=== PATIENT | male | born 1985 | race Caucasian/White ===

== ENCOUNTER 2020-02-25 10:15 | Outpatient (REF) | payer OTHER, SELFPAY ==
--- NOTE | 2020-02-25 10:24 | XR_ITS ---
EXAMINATION: XR FACIAL BONES CLINICAL INFORMATION: Injury to face. COMPARISON: None TECHNIQUE: 3 views of the facial bones were obtained. FINDINGS: There is normal aeration of bilateral paranasal sinuses and mastoid air cells. No mucoperiosteal thickening or air-fluid levels seen. There is no maxillofacial, nasal or orbital fractures seen. The TM joints appear normal. The soft tissues are normal. XR/XR facial bones <3V IMPRESSION: Unremarkable facial bone exam.
== END 2020-02-25 10:16 | disposition home or self-care (01) ==
LOC: HO.HMGCX 10:15
PROVIDERS: PCP Nurse Practitioner Family; Visit Provider Nurse Practitioner Family
DX: S09.93XA Unspecified injury of face, initial encounter (principal)
CPT/HCPCS: 70140

== ENCOUNTER 2022-08-24 13:25 | Outpatient (AMB) | payer OTHER, SELFPAY ==
[2022-08-24 13:35] VITALS: BP 150/108; PULSE 104; O2SAT 98; BMI 29.5
--- NOTE | 2022-08-24 13:35 | A.OFFPC_ITS ---
Vital Signs 08/24/22 13:35 08/24/22 14:31 Height 5 ft 11 in Weight 211 lb 8 oz BMI 29.5 BP 150/108 H 152/108 H Blood Pressure Location Lt brachial Lt brachial Position Sitting Sitting Pulse 104 H Pulse Source Pulse Oximeter Pulse Oximetry (%) 98 Oxygen Delivery Method Room Air Intake Visit Reasons: Physical Exam Allergies No Known Allergies Allergy (Verified 08/24/22 17:09) Medication List - Last Reconciled 08/24/22 by TREVOR York No Known Home Meds Tobacco use date assessed: 08/24/22 Dental Screening Dental Screen Date: 08/24/22 Did you have a dental visit in the last 12 months?: Yes Did you have a dental problem in the last 6 months where you did not have access to dental care?: No Was dental information given to patient?: Patient has dentist HPI Physical Exam HPI Details Pt is here for a PE. Will order labs. HTN: pt reported being in the 120s/80s at home. Will have pt continue to monitor BP at home. Denies chest pain, shortness of breath, headache, dizziness, and blurred vision. [facility] Social History Housing: House Alcohol intake: current Alcohol intake frequency: holidays/special occasions only Patient Tobacco Use Status: Never used Tobacco e-Cigarette/Vaping Use: Never Used Second Hand Smoke Exposure: No service: No Current occupational status: employed Current occupation: self employed retail Current occupational exposures/hazards: No Cognitive needs: No Hearing needs: No Vision needs: No Review of Systems Const Denies chills and Denies fever(s) Eyes Denies blurry vision ENT Denies vertigo, Denies dizziness and Denies sore throat Card Denies chest pain at rest, Denies chest pain with activity, Denies diaphoresis, Denies dyspnea and Denies dyspnea on exertion Resp Denies cough, Denies dyspnea, Denies dyspnea on exertion and Denies wheezing GI Denies abdominal pain, Denies melena, Denies hematochezia, Denies constipation, Denies diarrhea and Denies loose stools Denies hematuria Musc Denies numbness and Denies tingling Skin/Breast Denies lesions Neuro Denies vertigo, Denies dizziness, Denies numbness and Denies tingling Psych Denies anxiety, Denies depression, Denies homicidal ideation, Denies suicidal ideation and Denies other (substance abuse) Aller/Immun Denies wheezing Physical exam (Primary Care) Vital Signs: Last Vital Signs Pulse 104 H 08/24/22 13:35 BP 152/108 H 08/24/22 14:31 Pulse Ox 98 08/24/22 13:35 Oxygen Delivery Method Room Air 08/24/22 13:35 BMI result Body Mass Index 29.5 Tobacco/Smoking Status: Tobacco use Status Tobacco use date assessed 08/24/22 08/24/22 13:40 Patient Tobacco Use Status Never used Tobacco 08/24/22 13:40 e-Cigarette/Vaping Use Never Used 08/24/22 13:40 Const General: cooperative Nutritional Appearance: obese Orientation/consciousness: patient oriented x3 HENMT Head: Yes normal to inspection, Yes normocephalic and Yes atraumatic Ears: TM's normal bilaterally Eyes General: appearance normal, both eyes and all related structures Alignment and Position: alignment normal and position normal Neck Neck: Yes normal visual inspection and Yes no lymphadenopathy Thyroid: Thyroid normal Resp Effort & Inspection: normal respiratory effort Auscultation: clear to auscultation bilaterally Cardio Rate: regular rate Rhythm: regular rhythm Heart sounds: S1 normal heart sound present, S2 normal heart sound present and no murmurs GI Palpation (GI): Soft to palpation and nontender Auscultation: normal bowel sounds Male General Exam: Yes normal external exam Penis: normal penis Scrotum: scrotum normal, testes descended bilaterally and no inguinal hernias Testes: no testicular mass Skin Rashes: no rashes Neuro General: patient oriented x3, moves all extremities, no focal motor deficits and deep tendon reflexes 2+ bilaterally Romberg Test: Negative Psych Appearance: grossly normal Mental Status: mental status grossly normal Speech and movement: Normal speech and movement present Affect: normal affect Attitude: cooperative Thought process: Normal thought process present Thought content: Normal thought content present Insight: Good insight present (Psych) Judgement: Good judgement present (Psych) Assessment and Plan Assessment & Plan (1) Physical exam: Code(s): Z00.00 - Encounter for general adult medical examination without abnormal findings Plan The patient agreed to the use of a medical records receptionist for this encounter. Scribed for TREVOR Kaiser by Renetta Beal, medical records receptionist, on 08/24/2022 at 14:20 EST. Orders: Orders Comprehensive [place]. Panel Fast Today Z00.00 - Encounter for general adult medical examination without abnormal findings Lipid Panel Today Z00.00 - Encounter for general adult medical examination without abnormal findings TSH reflex Free T4 Today Z00.00 - Encounter for general adult medical examination without abnormal findings Complete Blood Count Auto Diff Today Z00.00 - Encounter for general adult medical examination without abnormal findings UA CC w/rflx Micro + Cult Today Z00.00 - Encounter for general adult medical examination without abnormal findings Coding Level of Care Code Est Pt Prev Care 18-39y(16646) Diagnoses Physical exam Z00.00
[2022-08-24 14:31] VITALS: BP 152/108
== END 2022-08-24 14:40 | disposition home or self-care (01) ==
PROVIDERS: Visit Provider Nurse Practitioner Family
DX: Z00.00 Encounter for general adult medical examination without abnormal findings (principal)
CPT/HCPCS: 99395

== ENCOUNTER 2022-08-26 07:58 | Outpatient (REF) | payer OTHER, SELFPAY ==
[2022-08-26 11:14] LABS: MANUAL DIFF FLAG NO
[2022-08-26 11:29] LABS: Appearance Urine Clear; Color Urine Yellow; Glucose Urine UA Negative (Negative); Leukocyte Esterase Urine Negative (Negative); Nitrite Urine Negative (Negative); PH 6.5 (5.0-9.0); Urine Blood Negative (Negative); Urine Ketones Negative (Negative); Urine Protein Negative (Neg-Trace)
[2022-08-26 11:32] LABS: Basophils Percent Auto 0.5 % (0-2); Eosinophils Absolute Auto 0.1 X10*3/uL (0.0-0.4); Eosinophils Percent Auto 1.3 % (0-4); Hemoglobin 15.6 g/dl (14.0-18.0); Imm Gran Abs Auto 0.02 X10*3/uL (0.00-0.03); Imm Gran Pct Auto 0.5 % (0.0-0.4); Lymphocytes Absolute Auto 1.1 X10*3/uL (1.2-4.9); Lymphocytes Percent Auto 26.8 % (20-40); Mean Corpuscular HGB Conc 33.2 g/dl (31.0-36.0); Mean Corpuscular Hemoglobin 28.9 pg (27.0-33.0); Mean Corpuscular Volume 87.2 fL (80.0-98.0); Mean Platelet Volume 10.6 fL (9.4-12.4); Monocytes Absolute Auto 0.4 X10*3/uL (0.1-1.2); Monocytes Percent Auto 9.6 % (2-11); Neutrophils Absolute Auto 2.4 x10*3/uL (2.0-8.3); Neutrophils Percent Auto 61.3 % (45-73); Platelet Count 230 X10*3/uL (160-400); Red Blood Count 5.39 X10*6/uL (4.60-5.80); Red Cell Distribution Width 12.8 % (11.0-16.0)
[2022-08-26 12:18] LABS: Alanine Aminotransferase 24 U/L (0-40); Albumin Level 4.6 g/dL (3.5-5.0); Alkaline Phosphatase 73 U/L (39-117); Anion Gap 11 (12-20); Aspartate Amino Transferase 18 U/L (5-37); Bilirubin Total 0.8 mg/dL (0.0-1.0); Blood Urea Nitrogen 17 mg/dL (9-16); Calcium 10.1 mg/dL (8.4-10.2); Carbon Dioxide 28 mmol/L (22-29); Chloride 103 mmol/L (96-108); Cholesterol 183 mg/dL; Estimated Glomerular Filt Rate > 60; Glucose Fasting 86 mg/dL (60-99); HDL Cholesterol 53 mg/dL; LDL Cholesterol Calculated 117 mg/dl; Potassium 4.2 mmol/L (3.3-5.1); Sodium 138 mmol/L (135-145); TSH reflex Free T4 1.29 uIU/mL (0.32-4.0); Total Protein 7.4 g/dL (6.5-8.0); Triglycerides 68 mg/dL
== END 2022-08-26 07:59 | disposition home or self-care (01) ==
LOC: HO.HMGCLDS 07:58
PROVIDERS: PCP Nurse Practitioner Family; Visit Provider Nurse Practitioner Family
DX: Z00.00 Encounter for general adult medical examination without abnormal findings (principal)
CPT/HCPCS: 36415; 80053; 80061; 81003; 84443; 85025

== ENCOUNTER 2023-08-29 11:12 | Outpatient (AMB) | payer OTHER, SELFPAY ==
--- NOTE | 2023-08-29 11:13 | MHC.PC.OV ---
Vital Signs 08/29/23 11:17 Height 5 ft 11 in Weight 204 lb BMI 28.4 BP 120/86 Blood Pressure Location Rt brachial Position Sitting Pulse 106 H Pulse Source Pulse Oximeter Pulse Oximetry (%) 96 Oxygen Delivery Method Room Air Intake Visit Reasons: Physical Exam Intake Note: Patient here for physical exam. Pt would like to talk about vertigo. Allergies No Known Allergies Allergy (Verified 08/29/23 11:18) Tobacco use date assessed: 08/29/23 Dental Screening Dental Screen Date: 08/24/22 HPI Physical Exam HPI Details pt is here for a PE. Offers no questions or concerns [facility] Social History Housing: House Alcohol intake: current Alcohol intake frequency: holidays/special occasions only Patient Tobacco Use Status: Never used Tobacco e-Cigarette/Vaping Use: Never Used Second Hand Smoke Exposure: No service: No Current occupational status: employed Current occupation: self employed retail Current occupational exposures/hazards: No Cognitive needs: No Hearing needs: No Vision needs: No Questionnaire PHQ-9 Over the last 2 weeks, how often have you been bothered by any of the following problems? 1. Little interest or pleasure in doing things: not at all 2. Feeling down, depressed, or hopeless: not at all 3. Trouble falling or staying asleep, or sleeping too much: not at all 4. Feeling tired or having little energy: not at all 5. Poor appetite or overeating: not at all 6. Feeling bad about yourself - or that you are a failure or have let yourself or your family down: not at all 7. Trouble concentrating on things, such as reading the newspaper or watching television: not at all 8. Moving or speaking so slowly that other people could have noticed. Or the opposite - being so fidgety or restless that you have been moving around a lot more than usual: not at all 9. Thoughts that you would be better off or of hurting yourself in some way: not at all Total score: 0 Depression Screening Interpretation: Negative Depression Screening Done: Yes 00998 - PHQ-9 Billing: Yes Source: Developed by Drs. Demetrio Tobin, Bisi Sandy, Polo Bright and colleagues, with an educational abdullahi from [employer]. Thrive Questionnaire Date Thrive assessed: 08/29/23 I am a: Patient What is your living situation today?: I have a steady place to live Within the past 12 months, did the food you bought not last and you didn't have the money to get more?: Never true Within the past 12 months, did you worry whether your food would run out before you got money to buy more?: Never true Do you have trouble paying for medicines?: No Do you have trouble getting transportation to medical appointments?: No Do you have trouble paying your heating and electricity bill?: No Do you have trouble taking care of your child, family member or friend?: No Do you have trouble with day-to-day activities such as bathing, preparing meals, shopping, managing finances, etc.?: No Are you currently unemployed and looking for a job?: No Are you interested in more education?: No Please select the resources that you would like help with: Housing/Long Term Currently or been in a relationship where the following occur: No concerns reported THRIVE Score: 0 AUDIT C Alcohol Use Questionnaire (AUDIT-C) 1. How often do you have a drink containing alcohol?: 2-4 times a month 2. How many drinks containing alcohol do you have on a typical day when you are drinking?: 1 or 2 3. How often do you have six or more drinks on one occasion?: Never Total Score: 2 EDWAR-7 AMB Questionnaire EDWAR-7 Date EDWAR - 7 assessed: 08/29/23 Feeling nervous, anxious, or on edge: 0 = Not at all Not being able to stop or control worryin = Not at all Worrying too much about different things: 0 = Not at all Trouble relaxin = Not at all Being so restless that it is hard to sit still: 0 = Not at all Becoming easily annoyed or irritable: 0 = Not at all Feeling afraid as if something awful might happen: 0 = Not at all Total EDWAR-7 score (0-4 normal; 5-9 mild; 10-14 moderate; 15-21 severe): 0 Source: Developed by Drs. Demetrio Tobin, Bisi Sandy, Polo Bright and colleagues, with an educational abdullahi from [employer]. EDWAR-7 Assessment Billing EDWAR-7 Assessment Tool: EDWAR-7 Assessment 68197 Review of Systems Const Denies chills and Denies fever(s) Eyes Denies blurry vision ENT Denies vertigo, Denies dizziness and Denies sore throat Card Denies chest pain at rest, Denies chest pain with activity, Denies diaphoresis, Denies dyspnea and Denies dyspnea on exertion Resp Denies cough, Denies dyspnea, Denies dyspnea on exertion and Denies wheezing GI Denies abdominal pain, Denies melena, Denies hematochezia, Denies constipation, Denies diarrhea and Denies loose stools Denies hematuria Musc Denies numbness and Denies tingling Skin/Breast Denies lesions Neuro Denies vertigo, Denies dizziness, Denies numbness and Denies tingling Psych Denies anxiety, Denies depression, Denies homicidal ideation, Denies suicidal ideation and Denies other (substance abuse) Aller/Immun Denies wheezing Physical exam (Primary Care) Vital Signs: Last Vital Signs Pulse 106 H 08/29/23 11:17 BP 120/86 08/29/23 11:17 Pulse Ox 96 08/29/23 11:17 Oxygen Delivery Method Room Air 08/29/23 11:17 BMI result Body Mass Index 28.4 Tobacco/Smoking Status: Tobacco use Status Tobacco use date assessed 08/29/23 08/29/23 11:20 Patient Tobacco Use Status Never used Tobacco 08/29/23 11:15 e-Cigarette/Vaping Use Never Used 08/29/23 11:15 PHQ-9: PHQ-9 Score PHQ-9: Total score 0 08/29/23 11:16 Depression Screening Interpretation: Negative Thrive Assessment: Date of Thrive Assessment Date Thrive assessed 08/29/23 08/29/23 11:16 Currently or been in a relationship where the following occur: No concerns reported Const General: cooperative Nutritional Appearance: well nourished Orientation/consciousness: patient oriented x3 HENMT Head: Yes normal to inspection, Yes normocephalic and Yes atraumatic Ears: TM normal on the right and TM normal on the left Eyes General: appearance normal, both eyes and all related structures Alignment and Position: alignment normal and position normal Neck Neck: Yes normal visual inspection and Yes no lymphadenopathy Resp Effort & Inspection: normal respiratory effort Auscultation: clear to auscultation bilaterally Cardio Rate: regular rate Rhythm: regular rhythm Heart sounds: S1 normal heart sound present, S2 normal heart sound present and no murmurs GI Palpation (GI): Soft to palpation and nontender Auscultation: normal bowel sounds Male General Exam: Yes normal external exam Penis: normal penis Scrotum: scrotum normal, testes descended bilaterally and no inguinal hernias Testes: no testicular mass Skin Rashes: no rashes Neuro General: patient oriented x3, moves all extremities, no focal motor deficits and deep tendon reflexes 2+ bilaterally Romberg Test: Negative Extrem Right lower extremity: no edema Left lower extremity: no edema Psych Affect: normal affect Attitude: cooperative Thought process: Normal thought process present Assessment and Plan Assessment & Plan (1) Physical exam: Code(s): Z00.00 - Encounter for general adult medical examination without abnormal findings Orders: Orders Complete Blood Count Auto Diff Today Z00.00 - Encounter for general adult medical examination without abnormal findings Comprehensive [place]. Panel Fast Today Z00.00 - Encounter for general adult medical examination without abnormal findings TSH reflex Free T4 Today Z00.00 - Encounter for general adult medical examination without abnormal findings UA CC w/rflx Micro + Cult Today Z00.00 - Encounter for general adult medical examination without abnormal findings Lipid Panel Today Z00.00 - Encounter for general adult medical examination without abnormal findings Coding Level of Care Code Est Pt Prev Care 18-39y(28793) Diagnoses Physical exam Z00.00 Additional Codes EDWAR-7 Assessment Billing - EDWAR-7 Assessment Tool: EDWAR-7 Assessment [id number] ([id number])
[2023-08-29 11:17] VITALS: BP 120/86; PULSE 106; O2SAT 96; BMI 28.4
== END 2023-08-29 11:42 | disposition home or self-care (01) ==
PROVIDERS: PCP Nurse Practitioner Family; Visit Provider Nurse Practitioner Family
DX: Z00.00 Encounter for general adult medical examination without abnormal findings (principal)
CPT/HCPCS: 99395

== ENCOUNTER 2023-09-27 07:58 | Outpatient (REF) | payer OTHER, SELFPAY ==
[2023-09-27 10:16] LABS: MANUAL DIFF FLAG NO
[2023-09-27 10:20] LABS: Appearance Urine Clear; Color Urine Yellow; Glucose Urine UA Negative (Negative); Leukocyte Esterase Urine Negative (Negative); Nitrite Urine Negative (Negative); Specific Gravity - Urine 1.025 (1.005-1.025); Urine Blood Negative (Negative); Urine Ketones Negative (Negative); Urine Protein Negative (Neg-Trace)
[2023-09-27 10:35] LABS: Basophils Percent Auto 0.8 % (0-2); Eosinophils Absolute Auto 0.1 X10*3/uL (0.0-0.4); Eosinophils Percent Auto 2.6 % (0-4); Hemoglobin 14.4 g/dl (14.0-18.0); Imm Gran Abs Auto 0.01 X10*3/uL (0.00-0.03); Imm Gran Pct Auto 0.3 % (0.0-0.4); Lymphocytes Absolute Auto 1.1 X10*3/uL (1.2-4.9); Lymphocytes Percent Auto 28.2 % (20-40); Mean Corpuscular HGB Conc 33.5 g/dl (31.0-36.0); Mean Corpuscular Volume 86.7 fL (80.0-98.0); Mean Platelet Volume 10.5 fL (9.4-12.4); Monocytes Absolute Auto 0.4 X10*3/uL (0.1-1.2); Monocytes Percent Auto 10.8 % (2-11); Neutrophils Absolute Auto 2.2 x10*3/uL (2.0-8.3); Neutrophils Percent Auto 57.3 % (45-73); Platelet Count 208 X10*3/uL (160-400); Red Blood Count 4.96 X10*6/uL (4.60-5.80); Red Cell Distribution Width 13.1 % (11.0-16.0); White Blood Count 3.8 X10*3/uL (4.8-10.8)
[2023-09-27 11:10] LABS: Alanine Aminotransferase 24 U/L (0-40); Albumin Level 4.4 g/dL (3.5-5.0); Alkaline Phosphatase 60 U/L (39-117); Anion Gap 10 (12-20); Aspartate Amino Transferase 18 U/L (5-37); Bilirubin Total 0.4 mg/dL (0.0-1.0); Blood Urea Nitrogen 16 mg/dL (9-16); Calcium 9.2 mg/dL (8.4-10.2); Carbon Dioxide 28 mmol/L (22-29); Chloride 105 mmol/L (96-108); Cholesterol 155 mg/dL (<200); Estimated Glomerular Filt Rate > 60; Glucose Fasting 97 mg/dL (60-99); HDL Cholesterol 51 mg/dL (>40); LDL Cholesterol Calculated 94 mg/dL (<100); Potassium 3.7 mmol/L (3.3-5.1); Sodium 139 mmol/L (135-145); TSH reflex Free T4 1.38 uIU/mL (0.32-4.0); Triglycerides 52 mg/dL (<150)
== END 2023-09-27 07:59 | disposition home or self-care (01) ==
LOC: HO.HMGCLDS 07:58
PROVIDERS: PCP Nurse Practitioner Family; Visit Provider Nurse Practitioner Family
DX: Z00.00 Encounter for general adult medical examination without abnormal findings (principal)
CPT/HCPCS: 36415; 80053; 80061; 81003; 84443; 85025

== ENCOUNTER 2023-12-06 07:45 | Outpatient (REF) | payer OTHER, SELFPAY ==
[2023-12-06 10:07] LABS: MANUAL DIFF FLAG NO
[2023-12-06 10:19] LABS: Basophils Percent Auto 0.9 % (0-2); Eosinophils Absolute Auto 0.1 X10*3/uL (0.0-0.4); Eosinophils Percent Auto 2.8 % (0-4); Hemoglobin 14.7 g/dl (14.0-18.0); Imm Gran Abs Auto 0.02 X10*3/uL (0.00-0.03); Imm Gran Pct Auto 0.5 % (0.0-0.4); Lymphocytes Absolute Auto 1.1 X10*3/uL (1.2-4.9); Lymphocytes Percent Auto 24.5 % (20-40); Mean Corpuscular HGB Conc 32.7 g/dl (31.0-36.0); Mean Corpuscular Hemoglobin 28.8 pg (27.0-33.0); Mean Corpuscular Volume 88.2 fL (80.0-98.0); Mean Platelet Volume 10.4 fL (9.4-12.4); Monocytes Absolute Auto 0.5 X10*3/uL (0.1-1.2); Monocytes Percent Auto 11.8 % (2-11); Neutrophils Absolute Auto 2.6 x10*3/uL (2.0-8.3); Neutrophils Percent Auto 59.5 % (45-73); Platelet Count 239 X10*3/uL (160-400); Red Cell Distribution Width 12.7 % (11.0-16.0); White Blood Count 4.3 X10*3/uL (4.8-10.8)
== END 2023-12-06 07:46 | disposition home or self-care (01) ==
LOC: HO.HMGCLDS 07:45
PROVIDERS: PCP Nurse Practitioner Family; Visit Provider Nurse Practitioner Family
DX: D72.819 Decreased white blood cell count, unspecified (principal)
CPT/HCPCS: 36415; 85025

== ENCOUNTER 2024-04-05 08:00 | Outpatient (AMB) | payer OTHER, SELFPAY ==
--- OUTSIDE RECORDS SUMMARY | 2024-04-05 08:03 | XMS_ITS | Patient Health Record ---
Author Organization [facility] [place] Address [address] [place] [address] Care Team Providers [facility] Aide Name Role Phone Vipul Lau Primary Care Provider Unav ailable Conner Clinton Unavailable [phone] Reason For Referral No Information Social History Tobacco Use: Social History Observation Description Date Details (start date - stop date) Never Smoker NA - NA Tobacco Use/Smoking Question Answer Notes Are you a: nonsmoker Additional Findings: Tobacco Non-User Current no n-smoker Alcohol Screen Question Answer Notes Did you have a drink contain ing alcohol in the past year? Yes How often did you have a dri nk containing alcohol in the past year? Monthly or less (1 point) Points 1 Interpretation Negative Tobacco use other than smoking: Question Answer Notes Are you an other tobacco user? No Plan Of Treatment Pending Test Test Name Order Date [id number] Plate 09/16/2020 Medical (General) History Surgical History Surgery Date(Month/Year)
--- NOTE | 2024-04-05 08:08 | AM.OFFWIN_ITS ---
Intake Vital Signs 04/05/24 08:09 Weight 210 lb BP 118/80 Blood Pressure Location Lt brachial Position Sitting Pulse 94 Pulse Source Pulse Oximeter Temp 98.1 F Temp Source Oral Pulse Oximetry (%) 97 Oxygen Delivery Method Room Air Intake Visit Reasons: EP Swelling in lymph nodes, cold 2+ weeks Intake Note: Patient here for lump around Lymph node area that has been present on and off for about 2 weeks. He also mentioned he has been having vertigo, chest congestion, slight cough and yellow/green mucus, left ear bothersome. Patient Tobacco Use Status: Never used Tobacco Allergies No Known Allergies Allergy (Verified 04/05/24 08:13) Do you need a note to return to daycare/school/sports/work: No HPI HPI Comments History of Present Illness Details History - The patient is a 38-year-old male pres enting for evaluation of persistent cough, lymphadenopathy, and episodes of dizziness. - Symptoms include a month-long cough pr oducing sputum, with no associated hemoptysis. - Lymphadenopathy noted as an enlarged, tender neck node observed for three days. - The patient reports dizziness describe d as a loss of balance rather than vertigo. - Current medications include occasional use of [id number] cold remedies. Physical Exam General: Cooperative, healthy appearing, comfortable and no acute distress Orientation/consciousness: Patient oriented x3 Limitations: No limitations Head: Normal to inspection Ears: Hearing grossly normal bilaterally, external ears normal and TM's normal bilaterally Nose: Normal external nose present, Normal nares present and No nasal discharge present Face and sinus: Normal facial exam and Yes sinuses nontender Mouth: Normal oral and palatal mucosa present, moist mucous membranes, Throat: Yes tonsils normal, Yes uvula midline. Posterior oropharynx erythema Eyes: Appearance normal, both eyes and all related structures Neck: Normal visual inspection, left submandibular lymph node enlarged and tender Respiratory: Clear to auscultation bilaterally. Normal respiratory effort, able to speak in complete sentences, Actively coughing, no respiratory distress, not tachypneic, no tripod positioning and no use of accessory muscles Cardiovascular: Regular rate and rhythm. Normal S1 and S2 Skin: No rashes or lesions noted Neuro: Patient oriented x3, reports dizziness and off-balance feeling Extremities: Normal to inspection and Yes no clubbing, cyanosis or edema [facility] Social History Housing: House Alcohol intake: current Alcohol intake frequency: holidays/special occasions only Patient Tobacco Use Status: Never used Tobacco e-Cigarette/Vaping Use: Never Used Second Hand Smoke Exposure: No service: No Current occupational status: employed Current occupation: self employed retail Current occupational exposures/hazards: No Cognitive needs: No Hearing needs: No Vision needs: No Review of Systems Const All systems reviewed & are unremarkable except as noted in HPI and below Physical Exam Vital Signs: Last Vital Signs Temp 98.1 F 04/05/24 08:09 Pulse 113 H 04/05/24 08:09 BP 118/80 04/05/24 08:09 Pulse Ox 97 04/05/24 08:09 Oxygen Delivery Method Room Air 04/05/24 08:09 Assessment & Plan Assessment & Plan (1) URI, acute: Code(s): J06.9 - Acute upper respiratory infection, unspecified Plan: Plan The management plan for the upper respiratory infection emphasizes symptomatic relief through [id number] medication and hydration, with close observation of lymphadenopathy. If the lymph node enlargement does not resolve, further diagnostic imaging, such as an ultrasound, may be warranted, pt should reach out to his PCP. Pt should increase fluids. Nasal corticosteroids, specifically Flonase, are recommended to help relieve dizziness potentially linked to ear fluid. Proper administration technique for Flonase is clarified, with emphasis on directing medication into the sinuses. Monitoring is advised for recurring episodes of tachycardia, although no intervention is indicated due to the transient nature of previous events. Viral testing for pathogens like COVID-19 is suggested for comprehensive evaluation. Patient was informed and verbally consented to the use of an ambient scribe for clinic note documentation during this visit Orders: Orders SARS-CoV2/FLU/RSV Today J06.9 - Acute upper respiratory infection, unspecified Medications: New fluticasone propionate 50 mcg/actuation administer into each nostril 1 spray intranasal Q12H 16 grams 0RF Coding Level of Care Code Est Pt Level 3 (24579) Diagnoses URI, acute J06.9
[2024-04-05 08:09] VITALS: BP 118/80; PULSE 94; TEMP 36.7; O2SAT 97
== END 2024-04-05 08:43 | disposition home or self-care (01) ==
PROVIDERS: PCP Nurse Practitioner Family; Visit Provider Physician Assistant
DX: J06.9 Acute upper respiratory infection, unspecified (principal)

== ENCOUNTER 2024-04-05 08:00 | Outpatient (REF) | payer OTHER, SELFPAY ==
[2024-04-05 11:16] LABS: Influenza A PCR POSITIVE (Negative); Influenza B PCR NEGATIVE (Negative); Resp Syncy Virus RNA Qual PCR NEGATIVE (Negative); SARS COV2 PCR INHOUSE NEGATIVE (Negative)
== END 2024-04-05 08:01 | disposition home or self-care (01) ==
LOC: HO.LAB 08:00
PROVIDERS: PCP Nurse Practitioner Family; Visit Provider Physician Assistant
DX: J06.9 Acute upper respiratory infection, unspecified (principal)
CPT/HCPCS: 0241U; 99212

== ENCOUNTER 2024-04-24 10:22 | Outpatient (REF) | payer OTHER, SELFPAY ==
[2024-04-24 13:31] LABS: MANUAL DIFF FLAG NO
[2024-04-24 13:52] LABS: Basophils Percent Auto 0.5 % (0-2); Eosinophils Absolute Auto 0.1 X10*3/uL (0.0-0.4); Eosinophils Percent Auto 1.5 % (0-4); Hematocrit 45.2 % (42.0-52.0); Hemoglobin 15.2 g/dl (14.0-18.0); Imm Gran Abs Auto 0.01 X10*3/uL (0.00-0.03); Imm Gran Pct Auto 0.3 % (0.0-0.4); Lymphocytes Absolute Auto 0.8 X10*3/uL (1.2-4.9); Mean Corpuscular HGB Conc 33.6 g/dl (31.0-36.0); Mean Corpuscular Hemoglobin 29.1 pg (27.0-33.0); Mean Corpuscular Volume 86.6 fL (80.0-98.0); Mean Platelet Volume 10.6 fL (9.4-12.4); Monocytes Absolute Auto 0.5 X10*3/uL (0.1-1.2); Monocytes Percent Auto 11.4 % (2-11); Neutrophils Absolute Auto 2.6 x10*3/uL (2.0-8.3); Neutrophils Percent Auto 65.3 % (45-73); Platelet Count 244 X10*3/uL (160-400); Red Blood Count 5.22 X10*6/uL (4.60-5.80)
[2024-04-24 14:04] LABS: Anion Gap 11 (12-20); Blood Urea Nitrogen 16 mg/dL (9-16); Calcium 9.9 mg/dL (8.4-10.2); Carbon Dioxide 29 mmol/L (22-29); Chloride 106 mmol/L (96-108); Estimated Glomerular Filt Rate > 60; Glucose Random 77 mg/dL (60-115); Potassium 3.8 mmol/L (3.3-5.1); Sodium 142 mmol/L (135-145)
[2024-04-24 14:23] LABS: TSH reflex Free T4 1.12 uIU/mL (0.32-4.0)
== END 2024-04-24 10:23 | disposition home or self-care (01) ==
LOC: HO.HMGCLDS 10:22
PROVIDERS: PCP Nurse Practitioner Family; Visit Provider Physician Assistant
DX: D72.819 Decreased white blood cell count, unspecified (principal); R53.83 Other fatigue; G93.39 Other post infection and related fatigue syndromes; H93.8X9 Other specified disorders of ear, unspecified ear
CPT/HCPCS: 36415; 80048; 84443; 85025; 99212

== ENCOUNTER 2024-04-24 10:37 | Outpatient (AMB) | payer OTHER, SELFPAY ==
--- NOTE | 2024-04-24 11:01 | AM.OFFWIN_ITS ---
Intake Vital Signs 04/24/24 11:03 Weight 95.254 kg BP 120/82 Blood Pressure Location Rt brachial Position Sitting Pulse 96 Pulse Source Pulse Oximeter Pulse Oximetry (%) 97 Oxygen Delivery Method Room Air Intake Visit Reasons: EP Fatigue Intake Note: Patient here for vertigo, fatigue that has been present for about 1 week. Patient Tobacco Use Status: Never used Tobacco Allergies No Known Allergies Allergy (Verified 04/24/24 11:04) Do you need a note to return to daycare/school/sports/work: Yes HPI EP Fatigue HPI Details Patient presents with continued fatigue and ear congestion causing dizziness at times. He was diagnosed with similar symptoms and noted to have influenza a 2 and half weeks ago. He felt somewhat better last week and then some symptoms return to this week. He denies fever, night sweats, changes in appetite, purulent nasal discharge, cough, GI symptoms, or headache. He notes he feels popping and cracking in his ears and when he moves quickly he will have a few minutes of mild dizziness and disorientation. Denies chest pain or heart palpitations. [facility] Medical History (Updated 04/24/24 @ 11:49 by CARY Thomas) Fatigue Social History Housing: House Alcohol intake: current Alcohol intake frequency: holidays/special occasions only Patient Tobacco Use Status: Never used Tobacco e-Cigarette/Vaping Use: Never Used Second Hand Smoke Exposure: No service: No Current occupational status: employed Current occupation: self employed retail Current occupational exposures/hazards: No Cognitive needs: No Hearing needs: No Vision needs: No Review of Systems Const All systems reviewed & are unremarkable except as noted in HPI and below Physical Exam Vital Signs: Last Vital Signs Pulse 96 04/24/24 11:03 BP 120/82 04/24/24 11:03 Pulse Ox 97 04/24/24 11:03 Oxygen Delivery Method Room Air 04/24/24 11:03 Const General: cooperative, comfortable and no acute distress Orientation/consciousness: patient oriented x3 HEENT Head: Yes normal to inspection Ears: hearing grossly normal bilaterally, external ears normal, TM's abnormal bilaterally (TMs normal with clear fluid levels noted bilaterally), mastoids normal and no periauricular adenopathy General nose exam: Normal external nose present and Normal nasal mucous membranes and turbinates present Face and sinus: Yes sinuses nontender Mouth: Normal oral and palatal mucosa present Throat: Yes posterior oropharynx normal Eyes Pupils: Equal, round and reactive pupils present Resp Effort & Inspection: normal respiratory effort Auscultation: clear to auscultation bilaterally Cardio Rate: regular rate Rhythm: regular rhythm Heart sounds: S1 normal heart sound present and S2 normal heart sound present Neuro General: patient oriented x3, gait normal, moves all extremities and no focal motor deficits Cranial nerves: Yes Facial sensation intact/muscles of mastication intact and Yes Equal, round and reactive pupils present Cognition (Neuro): normal cognition Gait exam (Neuro): Normal gait present Romberg Test: Negative Assessment & Plan Assessment & Plan (1) Leukopenia: Comment: Patient has history of leukopenia and is overdue for recheck. Will check CBC given history and fatigue. Code(s): D72.819 - Decreased white blood cell count, unspecified Qualifiers: Leukopenia type: unspecified Qualified Code(s): D7.819 - Decreased white blood cell count, unspecified (2) Fatigue: Comment: Check CBC, BMP, TSH Code(s): R53.83 - Other fatigue Qualifiers: Fatigue type: other post infection and related fatigue syndromes Qualified Code(s): G93.39 - Other post infection and related fatigue syndromes (3) Ear congestion: Code(s): H93.8X9 - Other specified disorders of ear, unspecified ear Plan Advised continue Nasonex he was given with influenza diagnosis, he can also trial a course of Sudafed to help with the inner ear fluid. Consider PT for Thong maneuvers as needed. Return to clinic if symptoms do not improve will report her lab results as available. Orders: Orders TSH reflex Free T4 Today D72.819 - Decreased white blood cell count, unspecified, R53.83 - Other fatigue Basic Metabolic Panel Today D72.819 - Decreased white blood cell count, unspecified, R53.83 - Other fatigue Complete Blood Count Auto Diff Today D72.819 - Decreased white blood cell count, unspecified, R53.83 - Other fatigue Coding Level of Care Code Est Pt Level 4 (77331) Diagnoses Leukopenia, unspecified type D72.819 Leukopenia type: unspecified Other post infection and related fatigue syndromes G93.39 Fatigue type: other post infection and related fatigue syndromes Ear congestion H93.8X9
[2024-04-24 11:03] VITALS: BP 120/82; PULSE 96; O2SAT 97
== END 2024-04-24 11:50 | disposition home or self-care (01) ==
PROVIDERS: PCP Nurse Practitioner Family; Visit Provider Physician Assistant
DX: D72.819 Decreased white blood cell count, unspecified (principal); G93.39 Other post infection and related fatigue syndromes; H93.8X9 Other specified disorders of ear, unspecified ear

== ENCOUNTER 2024-07-12 15:18 | Outpatient (AMB) | payer OTHER, SELFPAY ==
--- OUTSIDE RECORDS SUMMARY | 2024-07-12 15:20 | XMS_ITS | Patient Health Record ---
Author Organization [facility] Danny andrew [place] Address [address] [place] [address] Care Team Providers Care Legal Receptionist Name Role Phone Vipul Lau Primary Care Provider Unav ailable Conner Clinton Unavailable [phone] Reason For Referral No Information Social History [...] Treatment Pending Test Test Name Order Date [id number] Plate 09/16/2020 Medical (General) History Surgical History Surgery Date(Month/Year)
[2024-07-12 15:24] VITALS: BP 122/76; PULSE 100; TEMP 37.1; O2SAT 98; BMI 29.3
--- NOTE | 2024-07-12 15:24 | MHC.OFFWIV ---
Intake Vital Signs 07/12/24 15:24 Height 5 ft 11 in Weight 210 lb BMI 29.3 BP 122/76 Blood Pressure Location Lt brachial Position Sitting Pulse 100 Pulse Source Pulse Oximeter Temp 98.7 F Temp Source Oral Pulse Oximetry (%) 98 Oxygen Delivery Method Room Air Intake Visit Reasons: EP Unsteady feeling/shaking, weakness Patient Tobacco Use Status: Never used Tobacco Allergies No Known Allergies Allergy (Verified 07/12/24 15:24) Do you need a note to return to daycare/school/sports/work: Yes HPI HPI Comments History of Present Illness Details This is a 39-year-old male with no stated past medical history presenting for evaluation of recurrent weakness, shakiness and weakness in his legs that occurred this afternoon. Patient states this is recurred several times over the past 4 months. Patient denies taking any new medications, visual changes, neck pain, headache, nausea, vomiting, chest pain or shortness for breath. 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 Patient states that he sleeps well at night and has no additional physical complaints. Patient is concerned that he may have atrial fibrillation like his mother. [facility] Medical History (Updated 07/12/24 @ 15:58 by Maki Keene PA-C) Fatigue Social History Housing: House Alcohol intake: current Alcohol intake frequency: holidays/special occasions only Patient Tobacco Use Status: Never used Tobacco e-Cigarette/Vaping Use: Never Used Second Hand Smoke Exposure: No service: No Current occupational status: employed Current occupation: self employed retail Current occupational exposures/hazards: No Cognitive needs: No Hearing needs: No Vision needs: No Review of Systems Const All systems reviewed & are unremarkable except as noted in HPI and below Denies difficulty sleeping, Denies fatigue, Reports weakness and Reports other ( shakiness ) Eyes Reports no additional complaints ENT Reports no additional complaints Card Reports no additional complaints Resp Reports no additional complaints GI Reports no additional complaints, Denies diarrhea, Denies nausea and Denies vomiting Reports no additional complaints Musc Reports no additional complaints and Reports muscle weakness (legs bilaterally) Skin/Breast Reports system reviewed and no additional complaints, except as documented Neuro Reports no additional complaints and Reports weakness Psych Reports no additional complaints Endo Reports no additional complaints and Denies fatigue Aubrey/Lymph Reports no additional complaints Aller/Immun Reports no additional complaints Physical Exam Vital Signs: Last Vital Signs Temp 98.7 F 07/12/24 15:24 Pulse 100 07/12/24 15:24 BP 122/76 07/12/24 15:24 Pulse Ox 98 07/12/24 15:24 Oxygen Delivery Method Room Air 07/12/24 15:24 BMI result Body Mass Index 29.3 Const General: cooperative, healthy appearing, comfortable, no acute distress, well developed, alert, awake, Physically active and other (anxious affect); No in distress Nutritional Appearance: average body habitus Orientation/consciousness: patient oriented x3 Limitations: no limitations HEENT Head: Yes normal to inspection and Yes normocephalic Ears: hearing grossly normal bilaterally, external ears normal, TM's normal bilaterally and EAC's normal General nose exam: Normal external nose present Face and sinus: Yes normal facial exam Mouth: Normal oral and palatal mucosa present and moist mucous membranes Throat: Yes posterior oropharynx normal Eyes General: appearance normal, both eyes and all related structures Visual Leyva: normal visual leyva by confrontation Alignment and Position: alignment normal Periorbital: periorbital findings normal Eyelids: Yes eyelids normal Conjunctivae: conjunctivae normal Sclerae: sclerae normal Corneas: corneas normal Pupils: Equal, round and reactive pupils present EOM: EOMs intact bilaterally Direct Ophthalmoscopy: normal light reflex and no photophobia Resp Effort & Inspection: normal respiratory effort and tachypneic Auscultation: clear to auscultation bilaterally Cardio Rate: regular rate Rhythm: regular rhythm Skin General skin exam: no rashes or lesions noted Neuro General: patient oriented x3 Cranial nerves: Yes Equal, round and reactive pupils present Psych Appearance: grossly normal Mental Status: mental status grossly normal Affect: Anxious affect present Insight: Good insight present (Psych) Judgement: Good judgement present (Psych) Results Reviewed Results Reviewed: EKG reveals NSR rate of 76bpm Assessment & Plan Assessment & Plan (1) Weakness: Comment: No acute findings noted on physical examination. Patient is concerned his symptoms may be associated with anxiety. Patient will talk to PCP about his concerns at next appointment in August. Code(s): R53.1 - Weakness Plan: Patient to keep diary about symptoms, and frequency of symptoms. Patient is invited to return to the Walk.In at any time as needed. Orders: Orders AMB EKG-In Office Today R53.1 - Weakness Coding Level of Care Code Est Pt Level 3 (58720) Diagnoses Weakness R53.1 Time Spent (min) 25
== END 2024-07-12 16:05 | disposition home or self-care (01) ==
PROVIDERS: PCP Nurse Practitioner Family; Visit Provider Physician Assistant
DX: R53.1 Weakness (principal)

== ENCOUNTER → 2024-07-12 15:18 | Outpatient (BNVA) | payer OTHER, SELFPAY | PROVIDERS: PCP Nurse Practitioner Family; Visit Provider Physician Assistant | DX: R53.1 Weakness (principal) | CPT/HCPCS: 99212 ==

== ENCOUNTER 2024-10-01 08:19 | Outpatient (AMB) | payer OTHER, SELFPAY ==
--- NOTE | 2024-10-01 08:34 | A.OFFPC_ITS ---
Vital Signs 10/01/24 08:36 Height 5 ft 11 in Weight 209 lb BMI 29.1 BP 128/84 Blood Pressure Location Lt brachial Position Sitting Respiration 16 Pulse 93 Pulse Source Pulse Oximeter Pulse Oximetry (%) 95 Oxygen Delivery Method Room Air Intake Visit Reasons: PHYSICAL EXAM*Unable to confirm 09/28 [employer] Production Professional Required: No Accompanied by: Self / Same As Patient Allergies No Known Allergies Allergy (Verified 10/01/24 08:53) Medication List - Last Reconciled [facility]01[facility]24 [facility] flutic[facility] propionate 50 mcg/actuation (Allergy Relief (fluticasone)) 2 sprays intranasal DAILY Tobacco use date assessed: 10/01/24 Dental Screening Dental Screen Date: 10/01/24 Did you have a dental visit in the last 12 months?: Yes Did you have a dental problem in the last 6 months where you did not have access to dental care?: No Was dental information given to patient?: Patient has dentist HPI PHYSICAL EXAM*Unable to confirm 09/28 DCR HPI Details History of Present Illness The patient is a 39-year-old male presenting with anxiety. He reports significant anxiety and had started using buspirone, which provided minimal relief but led to increased side effects as the dosage was increased. The patient denies any chest pain, shortness of breath, abdominal pain, blood in stool, constipation, diarrhea, suicidal ideation, or homicidal ideation. Health Maintenance Social History Review of Systems - Cardiovascular: Denies chest pain - Respiratory: Denies dyspnea - Gastrointestinal: Denies abdominal fran n, blood in stool, constipation, diarrhea - Psychiatric: Reports significant anxie ty; denies suicidal ideation, homicidal ideation Physical Exam General: Cooperative, healthy appearing, comfortable, no acute distress and well developed Orientation: Patient oriented x3 Limitations: No limitations Head: Normal to inspection Ears: Hearing grossly normal bilaterally Nose: Normal external nose present Face and sinus: Normal facial exam Eyes: Appearance normal, both eyes and all related structures Neck: Normal visual inspection and Yes full ROM Respiratory: Normal respiratory effort and able to speak in complete sentences. Clear to auscultation bilaterally Cardiovascular: Regular rate and rhythm. Normal S1 and S2 GI: Normal to inspection. Soft to palpation and nontender : testicles without masses/lesions and no hernias appreciated Skin: No rashes or lesions noted Neuro: Patient oriented x3 Extremities: Normal to inspection Results Plan The patient will be started on sertraline at a dose of 25 mg to be taken nightly. A follow-up appointment is scheduled in approximately 6 weeks to 2 months to assess the patient's response to the medication and adjust the treatment plan as necessary. Discussion Notes I discussed with the patient the initiation of sertraline at 25 mg nightly to manage his anxiety symptoms. We will follow up in 6 weeks to 2 months to evaluate the effectiveness of the treatment and make any necessary adjustments. Patient Instructions - Start taking sertraline 25 mg every ni ght. - Schedule a follow-up appointment in 6 weeks to 2 months. [facility] Medical History Fatigue Social History Housing: House Alcohol intake: current Alcohol intake frequency: holidays/special occasions only Patient Tobacco Use Status: Never used Tobacco e-Cigarette/Vaping Use: Never Used Second Hand Smoke Exposure: No service: No Current occupational status: employed Current occupation: self employed retail Current occupational exposures/hazards: No Cognitive needs: No Hearing needs: No Vision needs: No Questionnaire PHQ-9 Over the last 2 weeks, how often have you been bothered by any of the following problems? 1. Little interest or pleasure in doing things: not at all 2. Feeling down, depressed, or hopeless: not at all 3. Trouble falling or staying asleep, or sleeping too much: not at all 4. Feeling tired or having little energy: not at all 5. Poor appetite or overeating: not at all 6. Feeling bad about yourself - or that you are a failure or have let yourself or your family down: not at all 7. Trouble concentrating on things, such as reading the newspaper or watching television: not at all 8. Moving or speaking so slowly that other people could have noticed. Or the opposite - being so fidgety or restless that you have been moving around a lot more than usual: not at all 9. Thoughts that you would be better off or of hurting yourself in some way: not at all Total score: 0 Depression Screening Interpretation: Negative Depression Screening Done: Yes 98760 - PHQ-9 Billing: Yes Source: Developed by Drs. Demetrio Tobin, Bisi Sandy, Polo Bright and colleagues, with an educational abdullahi from [employer]. Thrive Questionnaire Date Thrive assessed: 04/23/24 I am a: Patient What is your living situation today?: I have a steady place to live Within the past 12 months, did the food you bought not last and you didn't have the money to get more?: Never true Within the past 12 months, did you worry whether your food would run out before you got money to buy more?: Never true Do you have trouble paying for medicines?: No Do you have trouble getting transportation to medical appointments?: No Do you have trouble paying your heating and electricity bill?: No Do you have trouble taking care of your child, family member or friend?: No Do you have trouble with day-to-day activities such as bathing, preparing meals, shopping, managing finances, etc.?: No Are you currently unemployed and looking for a job?: No Are you interested in more education?: No Please select the resources that you would like help with: None Currently or been in a relationship where the following occur: No concerns reported THRIVE Score: 0 EDWAR-7 AMB Questionnaire EDWAR-7 Date EDWAR - 7 assessed: 10/01/24 Feeling nervous, anxious, or on edge: 0 = Not at all Not being able to stop or control worryin = Not at all Worrying too much about different things: 0 = Not at all Trouble relaxin = Not at all Being so restless that it is hard to sit still: 0 = Not at all Becoming easily annoyed or irritable: 0 = Not at all Feeling afraid as if something awful might happen: 0 = Not at all Total EDWAR-7 score (0-4 normal; 5-9 mild; 10-14 moderate; 15-21 severe): 0 Source: Developed by Drs. Demetrio Tobin, Bisi Sandy, Polo Bright and colleagues, with an educational abdullahi from [employer]. EDWAR-7 Assessment Billing EDWAR-7 Assessment Tool: EDWAR-7 Assessment 09738 Physical exam (Primary Care) Vital Signs: Last Vital Signs Pulse 93 10/01/24 08:36 Resp 16 10/01/24 08:36 BP 128/84 08/18/25 08:36 Pulse Ox 95 10/01/24 08:36 Oxygen Delivery Method Room Air 10/01/24 08:36 BMI result Body Mass Index 29.1 Tobacco/Smoking Status: Tobacco use Status Tobacco use date assessed 10/01/24 10/01/24 08:42 Patient Tobacco Use Status Never used Tobacco 10/01/24 08:42 e-Cigarette/Vaping Use Never Used 10/01/24 08:42 PHQ-9: PHQ-9 Score PHQ-9: Total score 0 10/01/24 08:42 Depression Screening Interpretation: Negative Thrive Assessment: Date of Thrive Assessment Date Thrive assessed 04/23/24 10/01/24 08:42 Currently or been in a relationship where the following occur: No concerns reported Coding Level of Care Code Est Pt Level 3 (65681) Est Pt Prev Care 18-39y(99733) Diagnoses Encounter for routine adult physical exam with abnormal findings Z. Anxiety F41.9 Additional Codes EDWAR-7 Assessment Billing - EDWAR-7 Assessment Tool: EDWAR-7 Assessment 85826 ([id number]) PHQ-9 - 35999 - PHQ-9 Billing: Yes ([id number]) Assessment & Plan Assessment & Plan (1) Encounter for routine adult physical exam with abnormal findings: Code(s): Z00. - Encounter for general adult medical examination with abnormal findings Category: Medical (2) Anxiety: Code(s): F41.9 - Anxiety disorder, unspecified Category: Medical Plan . Orders: Orders Comprehensive Lafe. Panel Fast Today Z. - Encounter for general adult medical examination with abnormal findings UA CC w/rflx Micro + Cult Today Z00. - Encounter for general adult medical examination with abnormal findings Lipid Panel Today Z00. - Encounter for general adult medical examination with abnormal findings Complete Blood Count Auto Diff Today Z00. - Encounter for general adult medical examination with abnormal findings TSH reflex Free T4 Today Z00. - Encounter for general adult medical examination with abnormal findings Medications: New sertraline 25 mg PO DAILY 30 tabs 3RF
[2024-10-01 08:36] VITALS: BP 128/84; PULSE 93; RESP 16; O2SAT 95; BMI 29.1
--- OUTSIDE RECORDS SUMMARY | 2024-10-01 08:40 | XMS_ITS | Patient Health Record ---
Author Organization [facility] [place] Address [address] [place] [address] Care Team Providers Care Family Practice Physician Assistant Name Role Phone Vipul Lau Primary Care Provider Unav ailable Conner Clinton Unavailable [phone] Reason For Referral No Information Social History [...] Treatment Pending Test Test Name Order Date [id number] Plate 09/16/2020 Medical (General) History Surgical History Surgery Date(Month/Year)
== END 2024-10-01 09:09 | disposition home or self-care (01) ==
LOC: HO.HMCC 08:20
PROVIDERS: PCP Nurse Practitioner Family; Visit Provider Nurse Practitioner Family
DX: Z00.01 Encounter for general adult medical examination with abnormal findings (principal); F41.9 Anxiety disorder, unspecified

== ENCOUNTER 2024-10-01 08:19 | Outpatient (REF) | payer OTHER, SELFPAY ==
[2024-10-01 10:00] LABS: MANUAL DIFF FLAG NO
[2024-10-01 10:07] LABS: Hematocrit 45.8 % (42.0-52.0); Hemoglobin 15.6 g/dl (14.0-18.0); Imm Gran Abs Auto 0.02 X10*3/uL (0.00-0.03); Imm Gran Pct Auto 0.4 % (0.0-0.4); Lymphocytes Absolute Auto 0.7 X10*3/uL (1.2-4.9); Mean Corpuscular HGB Conc 34.1 g/dl (31.0-36.0); Mean Corpuscular Hemoglobin 29.1 pg (27.0-33.0); Mean Corpuscular Volume 85.3 fL (80.0-98.0); NRBC Abs Auto 0.000 X10*3/uL (0.0-0.012); NRBC Pct Auto 0.0 /100WBC (0.0-0.2); Platelet Count 215 X10*3/uL (160-400); Red Blood Count 5.37 X10*6/uL (4.60-5.80); White Blood Count 4.5 X10*3/uL (4.8-10.8)
[2024-10-01 11:05] LABS: Alanine Aminotransferase 41 U/L (0-40); Albumin Level 4.8 g/dL (3.5-5.0); Alkaline Phosphatase 73 U/L (39-117); Anion Gap 12 (12-20); Aspartate Amino Transferase 27 U/L (5-37); Blood Urea Nitrogen 15 mg/dL (9-16); Calcium 9.4 mg/dL (8.4-10.2); Carbon Dioxide 28 mmol/L (22-29); Chloride 103 mmol/L (96-108); Cholesterol 194 mg/dL (<200); Estimated Glomerular Filt Rate > 60; HDL Cholesterol 54 mg/dL (>40); Potassium 3.8 mmol/L (3.3-5.1); Sodium 139 mmol/L (135-145); Total Protein 7.4 g/dL (6.5-8.0); Triglycerides 83 mg/dL (<150)
[2024-10-01 12:59] LABS: Appearance Urine Clear; Glucose Urine UA Negative (Negative); PH 6.5 (5.0-9.0); Specific Gravity - Urine 1.020 (1.005-1.025)
[2024-10-02 10:57] LABS: Lyme Abs Screen <0.90 index
[2024-10-02 23:39] LABS: A. Phagocytphilium DNA,RT-PCR NOT DETECTED (NOT DETECTED); Babesia Microti DNA, RT-PCR NOT DETECTED (NOT DETECTED); Borrelia Miyamotoi,DNA RT-PCR NOT DETECTED (NOT DETECTED); E.Chaffeensis DNA RT-PCR NOT DETECTED (NOT DETECTED); Lyme(Borrelia ssp)DNA RT-PCR NOT DETECTED (NOT DETECTED)
== END 2024-10-01 08:20 | disposition home or self-care (01) ==
LOC: HO.HMGCLDS 08:19
PROVIDERS: PCP Nurse Practitioner Family; Visit Provider Nurse Practitioner Family
DX: Z00.01 Encounter for general adult medical examination with abnormal findings (principal); F41.9 Anxiety disorder, unspecified; R53.83 Other fatigue; T14.8XXD Other injury of unspecified body region, subsequent encounter; W57.XXXD Bitten or stung by nonvenomous insect and other nonvenomous arthropods, subsequent encounter
CPT/HCPCS: 36415; 80053; 80061; 81003; 84443; 85025; 86617; 86618; 87468; 87469; 87478; 87484; 87798; 96127; 99212; 99395

== ENCOUNTER 2024-11-13 06:59 | Outpatient (AMB) | payer OTHER, SELFPAY ==
--- OUTSIDE RECORDS SUMMARY | 2024-11-13 07:01 | XMS_ITS | Patient Health Record ---
Author Organization [facility] [place] Address [address] [place] [address] Care Team Providers Care Clerical Clerk Name Role Phone Vipul Lau Primary Care Provider Unav ailable Conner Clinton Unavailable [phone] Reason For Referral No Information Social History [...] Treatment Pending Test Test Name Order Date [id number] Plate 09/16/2020 Medical (General) History Surgical History Surgery Date(Month/Year)
--- NOTE | 2024-11-13 07:46 | MHC.PC.OV ---
Intake Visit Reasons: 6 weeks f/up Allergies No Known Allergies Allergy (Verified 11/13/24 07:49) Medication List - Last Reconc[facility] fluticasone propionate 50 mcg/actuation (Allergy Relief (fluticasone)) 2 sprays intranasal DAILY sertraline 25 mg PO DAILY Tobacco use date assessed: 10/01/24 Dental Screening Dental Screen Date: 10/01/24 HPI 6 weeks f/up HPI Details History of Present Illness The patient is a 39-year-old male presenting for a follow-up telehealth visit regarding sertraline management. The patient started sertraline approximately a month and a half ago at a dose of 25 mg daily. He reports a noticeable improvement in his condition, specifically mentioning a reduction in panic attacks and an overall sense of doing much better. The patient experiences occasional sensations he describes as head zings which he associates with changes in serotonin levels, but notes these sensations are decreasing in frequency. He denies any desire to increase the dosage of sertraline at this time. He denies experiencing any fevers, chills, blurred vision, chest pain, or shortness of breath. Review of Systems - Neurological: Reports occasional 'head zinc' sensations. Denies blurred vision. - Cardiovascular: Denies chest pain. - Respiratory: Denies shortness of breath. - General: Denies fevers or chills. Plan 1. Panic Attacks The patient reports significant improvement in panic attacks since starting sertraline 25 mg daily approximately a month and a half ago. He does not wish to increase the dosage at this time and is experiencing fewer 'head zinc' sensations, which may be related to serotonin level adjustments. Continued monitoring of symptoms and medication efficacy is planned, with a follow-up visit scheduled in the near future. 2. Preventative Care: Medication Management With Sertraline The patient is currently on sertraline 25 mg daily, which he started approximately a month and a half ago. He reports doing well on this regimen, with no desire to increase the dosage despite occasional 'head zinc' sensations. The plan is to continue the current dosage and reassess during the next follow-up visit. Discussion Notes The patient was informed about the current management plan with sertraline 25 mg daily, which he started approximately a month and a half ago. He was advised to continue the current dosage as he reports significant improvement in panic attacks and overall well-being. The patient was also informed about the potential for 'head zinc' sensations to decrease over time as serotonin levels stabilize. A follow-up visit was scheduled to monitor progress and reassess the treatment plan. Patient Instructions - Continue taking sertraline 25 mg daily as prescribed. - Monitor for any changes in symptoms and report if they worsen. - Attend the scheduled follow-up visit to reassess treatment. [facility] Medical History Fatigue Social History Housing: House Alcohol intake: current Alcohol intake frequency: holidays/special occasions only Patient Tobacco Use Status: Never used Tobacco e-Cigarette/Vaping Use: Never Used Second Hand Smoke Exposure: No service: No Current occupational status: employed Current occupation: self employed retail Current occupational exposures/hazards: No Cognitive needs: No Hearing needs: No Vision needs: No Questionnaire Thrive Questionnaire Date Thrive assessed: 04/23/24 I am a: Patient What is your living situation today?: I have a steady place to live Within the past 12 months, did the food you bought not last and you didn't have the money to get more?: Never true Within the past 12 months, did you worry whether your food would run out before you got money to buy more?: Never true Do you have trouble paying for medicines?: No Do you have trouble getting transportation to medical appointments?: No Do you have trouble paying your heating and electricity bill?: No Do you have trouble taking care of your child, family member or friend?: No Do you have trouble with day-to-day activities such as bathing, preparing meals, shopping, managing finances, etc.?: No Are you currently unemployed and looking for a job?: No Are you interested in more education?: No Please select the resources that you would like help with: None Currently or been in a relationship where the following occur: No concerns reported THRIVE Score: 0 EDWAR-7 AMB Questionnaire EDWAR-7 Date EDWAR - 7 assessed: 10/01/24 Source: Developed by Drs. Demetrio Tobin, Bisi Sandy, Polo Bright and colleagues, with an educational abdullahi from [employer]. Physical exam (Primary Care) Tobacco/Smoking Status: Tobacco use Status Tobacco use date assessed 10/01/24 10/01/24 08:42 Patient Tobacco Use Status Never used Tobacco 10/01/24 08:42 e-Cigarette/Vaping Use Never Used 10/01/24 08:42 Thrive Assessment: Date of Thrive Assessment Date Thrive assessed 04/23/24 10/01/24 08:42 Currently or been in a relationship where the following occur: No concerns reported Telehealth Telehealth Telehealth Platform: [employer] Location of provider rendering services: practice address Location of patient: address on file Patient Identification confirmed using: Name, : Yes Telehealth method: video Patient verbally consented to treatment: Yes Patient verbally consented to billing insurance company: Yes Patient informed of any privacy concerns related to visit: Yes Minutes spent on Phone/Video with Pt.: 10 Coding Level of Care Code Tele Est Pt Level 3 (90052) Diagnoses Anxiety F41.9 Panic attacks F41.0 Assessment & Plan Assessment & Plan (1) Anxiety: Code(s): F41.9 - Anxiety disorder, unspecified Category: Medical (2) Panic attacks: Code(s): F41.0 - Panic disorder [episodic paroxysmal anxiety] Category: Medical Plan .
== END 2024-11-13 07:51 | disposition home or self-care (01) ==
LOC: HO.HMCC 06:59
PROVIDERS: PCP Nurse Practitioner Family; Visit Provider Nurse Practitioner Family
DX: F41.9 Anxiety disorder, unspecified (principal); F41.0 Panic disorder [episodic paroxysmal anxiety]

== ENCOUNTER 2024-11-28 09:53 | Outpatient (REF) | payer OTHER, SELFPAY ==
--- NOTE | ~2024-11-28 | US_ITS ---
CLINICAL HISTORY: R74.8 - Abnormal levels of other serum enzymes Ultrasound of the abdomen Comparison: None available Findings: The liver is normal in size, measuring 15.9cm. Increased echogenicity without focal lesions. No intrahepatic biliary ductal dilatation. No cholelithiasis. No gallbladder wall thickening or pericholecystic fluid. Negative Rivera's sign. The common bile duct is normal, measuring 0.2cm. Unremarkable limited evaluation of the pancreas. The right kidney is normal in echogenicity and size, measuring 12.0cm. No nephrolithiasis or hydronephrosis. The left kidney is normal echogenicity and size, measuring 11.6cm. No nephrolithiasis or hydronephrosis. The spleen is without focal lesions and normal in size, measuring 11.4cm. The aorta and IVC are unremarkable. No ascites. Impression: No acute findings. Hepatic steatosis. This document has been electronically signed by: Nhung Sandoval MD on 11/29/2024 14:54:48
--- OUTSIDE RECORDS SUMMARY | 2024-11-28 11:25 | XMS_ITS | Patient Health Record ---
Author Organization [facility] [place] Address [address] [place] [address] Care Team Providers Care Parts Back Counter Man Name Role Phone Vipul Lau Primary Care Provider Unav ailable Conner Clinton Unavailable [phone] Reason For Referral No Information Social History [...] Treatment Pending Test Test Name Order Date [id number] Plate 09/16/2020 Medical (General) History Surgical History Surgery Date(Month/Year)
== END 2024-11-28 09:54 | disposition home or self-care (01) ==
LOC: HO.HMGCX 09:53
PROVIDERS: PCP Nurse Practitioner Family; Visit Provider Nurse Practitioner Family
DX: R74.8 Abnormal levels of other serum enzymes (principal)
CPT/HCPCS: 76700

== ENCOUNTER → 2024-11-28 09:54 | Outpatient (BNV) | payer OTHER, SELFPAY | PROVIDERS: PCP Nurse Practitioner Family; Visit Provider Radiology Diagnostic Radiology | DX: K76.0 Fatty (change of) liver, not elsewhere classified (principal) | CPT/HCPCS: 76700 ==